=== PATIENT | female | born 1970 | race Caucasian/White ===

== ENCOUNTER 2017-01-13 20:26 | Emergency (ER) | payer OTHER ==
[2017-01-13 20:41] VITALS: BP 137/71; PULSE 72; RESP 16; TEMP 98.2; O2SAT 94
[2017-01-13] MEDS ORDERED: PHENAZOPYRIDINE HCL 200 MG TAB PO ONE (20:50)
[2017-01-13 20:55] LABS: LEUKOCYTE ESTERASE,URINE TRACE (NEGATIVE); PH,URINE 6.5 (5.0-7.5)
--- NOTE | 2017-01-13 20:55 | UCPHY ---
H & P Time Seen by Provider: 01/13/17 20:41 Patient Type: Established HPI/ROS: Today this patient reports onset of dysuria, frequency and urgency that started this morning and has been increasing in intensity. She currently has moderate bladder discomfort when she urinates and associated dysuria. She feels that her urine is darker than usual as well. She has no other associated symptoms. She states that the symptoms are similar to prior bladder infections. ROS: No fevers, fatigue or other constitutional symptoms. GI: No nausea vomiting : No back pain. No vaginal discharge. 7 point ROS is otherwise negative. Past Medical/Surgical History: Otherwise healthy no recent UTIs. Smoking Status: Never smoked Physical Exam: General Appearance: Alert, no distress. Eyes: Pupils equal and round no pallor or injection. Respiratory: There are no retractions, lungs are clear to auscultation. Gastrointestinal: Soft, minimal suprapubic tenderness with no guarding or rebound. Back: No CVA tenderness Neurological: Alert Skin: Warm and dry, no rashes. DIFFERENTIAL DIAGNOSIS: After history and physical exam differential diagnosis was considered for cystitis, interstitial cystitis, pyelonephritis, urethral pathology Constitutional: Initial Vital Signs Temperature (C) 36.8 C 01/13/17 20:39 Heart Rate 72 01/13/17 20:39 Respiratory Rate 16 01/13/17 20:39 Blood Pressure 137/71 H 01/13/17 20:39 O2 Sat (%) 94 01/13/17 20:39 O2 Delivery Mode Room Air Allergies/Adverse Reactions: No Known Allergies Allergy (Verified 03/02/16 11:24) Home Medications: Medication Instructions Recorded Bcp 01/13/17 Cephalexin [Keflex (*)] 500 mg PO TID #15 cap 01/13/17 Phenazopyridine HCl [Pyridium 200 mg PO TID PRN #6 tab 01/13/17 200mg (RX)] MDM/Departure - MDM Diagnostics: Urinalysis reveals hematuria, bacteria and positive leuk esterase. ED Course/Re-evaluation: Peridium p.o. Keflex p.o. Her clinical presentation and urinalysis is consistent with hemorrhagic cystitis. - Depart Disposition: Home, Routine, Self-Care Clinical Impression: Hemorrhagic cystitis Condition: Good Instructions: Urinary Tract Infection in Women (ED) Additional Instructions: Diagnosis: Hemorrhagic cystitis Plan: Drink plenty fluids Keflex antibiotic Pyridium if needed for burning with urination Return for any significant worsening despite treatment plan. Referrals: Meggan Leavitt MD [Primary Care Provider] - As per Instructions - PQRS PQRS Measurement: NA
[2017-01-13 20:56] LABS: COLOR YELLOW; NITRITE,URINE POSITIVE (NEGATIVE)
[2017-01-13 21:03] LABS: BACTERIA 2+ /hpf (NONE SEEN); MUCUS 1+ /lpf (NONE-1+); RBC,URINE >182 /hpf (0-3)
[2017-01-13] MEDS ORDERED: CEPHALEXIN 500 MG CAP PO ONE (21:06)
== END 2017-01-13 21:23 | disposition home or self-care (01) ==
LOC: CED 20:26
DX: N30.91 Cystitis, unspecified with hematuria (principal)
CPT/HCPCS: 81003-PO; 81015-PO; 99214-PO; G0463-PO

== ENCOUNTER → 2017-06-17 | Outpatient (CLI) | payer OTHER | LOC: CIMAGING 14:38 | PROVIDERS: ATTEND Family Medicine | DX: Z12.31 Encounter for screening mammogram for malignant neoplasm of breast (principal) | CPT/HCPCS: G0202 ==